=== PATIENT | male | born 1995 | race Caucasian/White ===

== ENCOUNTER 2018-02-08 03:24 | Emergency (ER) | payer SELFPAY ==
[~2018-02-08] VITALS: Ht 175.3 cm; Wt 90.7 kg
[2018-02-08] MEDS ORDERED: MORPHINE SULFATE 4 MG/ML VIAL. IV ONE (04:00)
[2018-02-08 05:27] VITALS: BP 131/76
--- NOTE | 2018-02-08 08:07 | RAD ---
EXAM: CHEST PA LATERAL DATE: 02/08/2018 3:40 AM INDICATION: severe mid chest pain today COMPARISON: No Prior FINDINGS: The heart is not enlarged. Mediastinal and hilar contours are normal. No focal parenchymal airspace opacity. No pleural effusion or pneumothorax. IMPRESSION: 1. No radiographic evidence for acute cardiopulmonary process. Electronically signed by: Marshall Mario MD (02/08/2018 8:04 AM) [facility]
--- NOTE | 2018-02-09 07:22 | EKG ---
[facility] [address] [place] [address] Test Date: 2018-02-08 Test Time: 03:30:15 Pat Name: PAUL TOVAR Department: Room: Gender: M [employer]ner: : 1995 Requested By: JESSY LIRA Order Number: [id number] Reading MD: Kuldeep Gomez MD Measurements Intervals [place] Rate: 67 P: 62 GA: 158 QRS: 58 QRSD: 108 T: 37 QT: 372 QTc: 395 Interpretive Statements SINUS RHYTHM Electronically Signed On 02-10-2018 13:40:05 CDT by Kuldeep Gomez MD
== END 2018-02-08 05:28 | disposition home or self-care (01) ==
LOC: ER 03:24
DX: R07.89 Other chest pain (principal)
CPT/HCPCS: 36415; 71046; 84484; 93005; 99285; G0480